=== PATIENT | male | born 1950 | race Caucasian/White ===

== ENCOUNTER 2022-08-04 00:43 | Day surgery (SDC) | payer MEDICARE, SELFPAY ==
[2022-07-26 11:24] VITALS: BMI 41.4
[2022-08-04 08:36] VITALS: BP 148/62; PULSE 52; RESP 20; TEMP 36.2; O2SAT 100; BMI 42.0
[2022-08-04] MEDS: LACTATED RINGERS 1,000 ML 150 ML IV CONT (08:45)
[2022-08-04 08:50] LABS: Glucose Point of Care 75 mg/dl (65-105)
--- NOTE | 2022-08-04 09:09 | WPDANESEPPF ---
Anes - Initial Pre Proc Eval Procedure: Operation Date: 08/04/22 09:45 Proposed Procedures p Screening Colonoscopy - Lee London MD Date/Time: 08/04/22 09:09 Surgeon: Lee London MD Pre Op Diagnosis: neoplasm screening Patient Data Age: 72 Gender: M Height: 1.78 m Weight: 133.1 kg Last Vital Signs Temp 97.2 F L 08/04/22 08:36 Pulse 52 L 08/04/22 08:36 Resp 20 08/04/22 08:36 BP 148/62 H 08/04/22 08:36 Pulse Ox 100 08/04/22 08:36 O2 Del Method Nasal Cannula 08/04/22 08:36 O2 Flow Rate 2 08/04/22 08:36 Allergies Allergy/AdvReac Type Severity Reaction Status Date / Time codeine Allergy Mild ITCHY Verified 08/04/22 08:35 hydrocodone Allergy Mild Hallucinati Verified 08/04/22 08:35 ng Home Medications Medication Instructions Recorded Confirmed Type apixaban 5 mg tablet (Eliquis) 5 mg PO BID 05/25/21 07/26/22 History duloxetine 30 mg capsule,delayed 30 mg PO DAILY 05/25/21 07/26/22 History release fenofibrate 160 mg tablet 160 mg PO DAILY 05/25/21 07/26/22 History furosemide 20 mg tablet 20 mg PO QAM 05/25/21 07/26/22 History lisinopril 20 mg tablet 20 mg PO BID 05/25/21 07/26/22 History simvastatin 80 mg tablet 80 mg PO DAILY 05/25/21 07/26/22 History albuterol sulfate 90 mcg/actuation 2 inh inhalation Q4H PRN Shortness 07/26/22 07/26/22 History aerosol inhaler Of Breath Or Wheezing amiodarone 200 mg tablet 200 mg PO BID 07/26/22 07/26/22 History clindamycin HCl 300 mg capsule 300 mg PO QID 07/26/22 07/26/22 History cyanocobalamin (vitamin B-12) 5,000 mcg PO DAILY 07/26/22 07/26/22 History 5,000 mcg capsule eszopiclone 3 mg tablet 3 mg PO HS 07/26/22 07/26/22 History famotidine 20 mg tablet 20 mg PO BID 07/26/22 07/26/22 History folic acid 1 mg tablet 1 mg PO DAILY 07/26/22 07/26/22 History hydroxychloroquine 400 mg tablet 400 mg PO DAILY 07/26/22 07/26/22 History leflunomide 10 mg tablet 10 mg PO DAILY 07/26/22 07/26/22 History metformin 1,000 mg tablet 1,000 mg PO BID 07/26/22 07/26/22 History methotrexate sodium 2.5 mg tablet 12.5 mg PO WEEKLY 07/26/22 07/26/22 History metoprolol tartrate 25 mg tablet 25 mg PO DAILY 07/26/22 07/26/22 History mupirocin 2 % topical ointment 1 applic topical TID 07/26/22 07/26/22 History nystatin 100,000 unit/mL oral 10 ml PO Q4H PRN OTHER 07/26/22 07/26/22 History suspension prednisone 5 mg tablet 5 mg PO DAILY 07/26/22 07/26/22 History tramadol 50 mg tablet 50 mg PO BID PRN Pain 07/26/22 07/26/22 History triamcinolone acetonide 0.1 % 1 applic topical PRN PRN Wound Care 07/26/22 07/26/22 History topical ointment Laboratory Tests 08/04/22 08:44 POC Capillary Glucose 75 mg/dl mg/dl (65-105) Patient hx anesthesia problems: none Family hx anesthesia problems: none Results Review: All pre-operative results and documents have been reviewed as part of the pre-operative evaluation. [facility] Past Medical History Medical History Afib Arthritis High cholesterol Hypertension Surgical History Surgical History History of cholecystectomy Family History Family History Sibling Alcohol abuse Mother Lung cancer Hypertension Grandparent Diabetes mellitus Father Hypertension Heart disease Other Stomach cancer Social History Social History Smoking packs per day: 2 Smoking cigarettes per day: 40.0 Years smoked: 20 Smoking pack-years: 40.00 Smoking status: Former smoker Tobacco type: cigarettes Alcohol intake: former Substance use: never Living arrangements: with family Occupation/Education: retired Gender identity (if verbalized by the patient): Male Spiritual care concerns: No Anes - Eval Final PreProcedure Day of Procedure 08/04/22 09:09 Patient isela
--- NOTE | 2022-08-04 09:21 | PM.HPGS ---
History of Present Illness History of Present Illness Consent: Risks, benefits, and alternatives have been discussed and questions answered. Patient agrees to proceed with procedure. Chief complaint: neoplasm screening Narrative: Colton Keene is a 72 year old male Presents for screening colonoscopy. Patient does have a prior history of colon polyps. Her most recent colonoscopy 2016 was unremarkable. Family history is significant that his sister had colon cancer. For this reason patient presents for screening colonoscopy. Patient's reports he recently has been followed for skin lesions workup in progress for this etiology. He has had COVID twice over the last several years has lost is taking his had significant weight loss. Review of Systems Review of Systems: Review of systems noncontributory. [facility] Past Medical History Medical History Afib Arthritis High cholesterol Hypertension Surgical History Surgical History History of cholecystectomy Family History Family History Sibling Alcohol abuse Mother Lung cancer Hypertension Grandparent Diabetes mellitus Father Hypertension Heart disease Other Stomach cancer Social History Social History Smoking packs per day: 2 Smoking cigarettes per day: 40.0 Years smoked: 20 Smoking pack-years: 40.00 Smoking status: Former smoker Tobacco type: cigarettes Alcohol intake: former Substance use: never Living arrangements: with family Occupation/Education: retired Gender identity (if verbalized by the patient): Male Spiritual care concerns: No Meds Home Medications and Allergies Home Medications Medication Instructions Recorded Confirmed Type apixaban 5 mg tablet (Eliquis) 5 mg PO BID 05/25/21 07/26/22 History duloxetine 30 mg capsule,delayed 30 mg PO DAILY 05/25/21 07/26/22 History release fenofibrate 160 mg tablet 160 mg PO DAILY 05/25/21 07/26/22 History furosemide 20 mg tablet 20 mg PO QAM 05/25/21 07/26/22 History lisinopril 20 mg tablet 20 mg PO BID 05/25/21 07/26/22 History simvastatin 80 mg tablet 80 mg PO DAILY 05/25/21 07/26/22 History albuterol sulfate 90 mcg/actuation 2 inh inhalation Q4H PRN Shortness 07/26/22 07/26/22 History aerosol inhaler Of Breath Or Wheezing amiodarone 200 mg tablet 200 mg PO BID 07/26/22 07/26/22 History clindamycin HCl 300 mg capsule 300 mg PO QID 07/26/22 07/26/22 History cyanocobalamin (vitamin B-12) 5,000 mcg PO DAILY 07/26/22 07/26/22 History 5,000 mcg capsule eszopiclone 3 mg tablet 3 mg PO HS 07/26/22 07/26/22 History famotidine 20 mg tablet 20 mg PO BID 07/26/22 07/26/22 History folic acid 1 mg tablet 1 mg PO DAILY 07/26/22 07/26/22 History hydroxychloroquine 400 mg tablet 400 mg PO DAILY 07/26/22 07/26/22 History leflunomide 10 mg tablet 10 mg PO DAILY 07/26/22 07/26/22 History metformin 1,000 mg tablet 1,000 mg PO BID 07/26/22 07/26/22 History methotrexate sodium 2.5 mg tablet 12.5 mg PO WEEKLY 07/26/22 07/26/22 History metoprolol tartrate 25 mg tablet 25 mg PO DAILY 07/26/22 07/26/22 History mupirocin 2 % topical ointment 1 applic topical TID 07/26/22 07/26/22 History nystatin 100,000 unit/mL oral 10 ml PO Q4H PRN OTHER 07/26/22 07/26/22 History suspension prednisone 5 mg tablet 5 mg PO DAILY 07/26/22 07/26/22 History tramadol 50 mg tablet 50 mg PO BID PRN Pain 07/26/22 07/26/22 History triamcinolone acetonide 0.1 % 1 applic topical PRN PRN Wound Care 07/26/22 07/26/22 History topical ointment Allergies Allergy/AdvReac Type Severity Reaction Status Date / Time codeine Allergy Mild ITCHY Verified 08/04/22 08:35 hydrocodone Allergy Mild Hallucinati Verified 08/04/22 08:35 ng Vital Signs Vital Signs - 24 hr 08/04/22 08:36 [place]
[2022-08-04 10:19] VITALS: BP 122/59; PULSE 54; RESP 13; O2SAT 100
[2022-08-04 10:29] VITALS: BP 135/73; PULSE 54; RESP 20; O2SAT 100
[2022-08-04 10:39] VITALS: BP 154/77; PULSE 58; RESP 19; O2SAT 100
== END 2022-08-04 10:51 | disposition home or self-care (01) ==
PROVIDERS: PCP Internal Medicine; Visit Provider Internal Medicine Gastroenterology
PROC: 0DJD8ZZ Inspection of Lower Intestinal Tract, Via Natural or Artificial Opening Endoscopic (ICD-10-PCS; CPT 45378; principal; 2022-08-04 09:45)
DX: Z12.11 Encounter for screening for malignant neoplasm of colon (principal); K64.8 Other hemorrhoids; Z80.0 Family history of malignant neoplasm of digestive organs; I48.91 Unspecified atrial fibrillation; I10 Essential (primary) hypertension; E78.00 Pure hypercholesterolemia, unspecified; Z87.891 Personal history of nicotine dependence; E66.01 Morbid (severe) obesity due to excess calories; Z68.41 Body mass index [BMI] 40.0-44.9, adult; Z79.01 Long term (current) use of anticoagulants; Z79.51 Long term (current) use of inhaled steroids; Z79.84 Long term (current) use of oral hypoglycemic drugs
CPT/HCPCS: G0105; 82948; J2704; J7120